=== PATIENT | male | born 1950 | race Caucasian/White ===

== ENCOUNTER → 2023-10-18 06:12 | Day surgery (SDC) | payer MEDICARE, OTHER, SELFPAY | LOC: GI 06:12 | PROVIDERS: ATTENDING PHYSICIAN Internal Medicine | DX: Z12.11 Encounter for screening for malignant neoplasm of colon (principal); K64.8 Other hemorrhoids; K63.5 Polyp of colon; D12.5 Benign neoplasm of sigmoid colon; D12.8 Benign neoplasm of rectum | CPT/HCPCS: 45385; 45380; 88305 ==

== ENCOUNTER 2024-06-17 11:01 | Emergency (ER) | payer MEDICARE, OTHER, SELFPAY ==
[2024-06-17 11:05] VITALS: BP 181/114
--- NOTE | 2024-06-17 11:49 | ED.GENMED ---
History of Present Illness
General
Chief Complaint: Breathing Problem
Source: patient
Exam Limitations: none
Time Seen by Provider: 06/17/24 11:44
History of Present Illness
History of Present Illness:
See MDM
Past History
Past History
ED Past Medical History: None
ED Past Surgical History: Orthopedic
Social History
Tobacco: Non-smoker
Personal:
Living: with family
Employment: Retired
Phy Exam
Physical Exam
Physical Exam:
See MDM
Scores
Heart Failure Risk
Heart Failure Risk Score: Not Applicable
Course
Orders/Labs/Results
Orders:
Orders
06/17/24 11:44
Dexamethasone Sod Phosphate [Decadron] 10 mg IV NOW STA
Ipratropium/Albuterol Sulfate [Duoneb] 3 ml INH R NOW STA
06/17/24 11:48
Electrocardiogram (*1) Urgent
Reason for Study: Shortness of Breath
EKG- Treatment ONCE
06/17/24 11:49
CR Chest - 2 Views Urgent
Comment:
Reason For Exam: SOB, cough
06/17/24 12:13
Complete Blood Count/With Diff Urgent
Comprehensive Metabolic Panel Urgent
NT-proBNP Urgent
Troponin I Urgent
Abnormal Lab Results
06/17/24
12:13
Abs Immat Gran (auto) 0.1 H 10^3/uL
(0-0.05)
Absolute Monos (auto) 0.9 H 10^3/uL
(0.1-0.6)
Immature Gran % 0.7 H %
(0-0.5)
Lymphocytes % 20.0 L %
(20.5-51.1)
Monocytes % 11.1 H %
(1.7-9.3)
Eosinophils % 8.7 H %
(0-6)
BUN 23 H mg/dl
(9-20)
Creatinine 0.6 L mg/dL
(0.7-1.3)
Glucose 101 H mg/dl
(70-99)
06/17/24 12:13
06/17/24 12:13
Vital Signs
Initial and Last Documented VS:
Initial Vital Signs
Temp Pulse Resp BP Pulse Ox
98.1 F 76 20 181/114 94
06/17/24 11:05 06/17/24 11:05 06/17/24 11:05 06/17/24 11:05 06/17/24 11:05
Last Documented Vital Signs
Temp Pulse Resp BP Pulse Ox
98.1 F 80 18 178/80 97
06/17/24 11:05 06/17/24 12:38 06/17/24 12:38 06/17/24 12:38 06/17/24 12:38
MDM/Problems Addressed
Differential Diagnosis Includes:
HPI and MDM Narrative:
73-year-old male presenting for evaluation of shortness of breath and cough. Patient states this feels very similar to a couple weeks ago when he was diagnosed with pneumonia and placed on antibiotics and steroids. He was also given a prescription
of albuterol which has been helping.
Patient states he is worried that the pneumonia has returned.
On exam, patient has diffuse expiratory wheezing throughout. No leg edema. Heart regular in rhythm. Will give DuoNeb and start Decadron and treat as likely bronchitis. Will obtain x-ray to rule out pneumonia
Physical exam
General: Well appearing and non-toxic
HEENT: protecting airway
Neck: appears supple
CV: No evidence of cyanosis. Regular rate and rhythm
Resp: No accessory muscle use. Diffuse expiratory wheezing throughout
Abd: Non-distended
Extremities: No deformities. No distal leg edema or tenderness
Neuro: alert
Psych: Normal affect
Skin: Intact
Problems Addressed including Acute and Chronic Conditions affecting care:
1. Acute bronchitis
Acuity: acute
Prognosis: stable
Details: Will give DuoNeb and IV Decadron. Will obtain x-ray to rule out pneumonia. Will obtain troponin and BNP to rule out ACS
Updates
Chest x-ray clear. Troponin and BNP negative. Patient feeling much better after DuoNeb and feels comfortable going home. Will start longer steroid taper and will write for inhaled steroid as well
Differential Diagnosis (but not limited to): Bronchitis, pneumonia
Testing considered: D-dimer
Drug therapy (if applicable): OTC meds, please see d/c instruction regarding Rx drugs
Amount and/or Complexity of Data Reviewed
Clinical info obtained from: Patient
External data reviewed: N/A
Labs I independently reviewed (but not limited to): Troponin negative
Radiology: X-ray independently reviewed: Chest x-ray clear
Pulse Ox: not hypoxic
EKG independently reviewed: Sinus rhythm, normal axis, no STEMI
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
Critical Care: N/A
Risk of Complication:
Social Determinants of health: Good social support
Discussed with other providers: N/A
Escalation of Care includes Admit/Obs: After being observed in the Emergency Department, pt stable for discharge.
Occasional wrong word or 'sound a like' substitutions may have occurred due to the inherent limitations of voice recognition software. Read the chart carefully and recognize, using context, where substitutions have occurred.
*Critical Care Note
Total Time (30-74mins, 75-104mins- exclusive of procedures): Not Applicable
ED Attending Note
-
Portions of this chart may have been created with voice recognition software.� Occasional wrong word or��sound alike� substitutions may have occurred due to the inherent limitations of voice recognition software.
Discharge Plan
Departure
Patient Disposition: Home (Routine Discharge)
Date of Disposition: 06/17/24
Time of Disposition: 14:02
Patient with high blood pressure during this ER visit?: Yes
Discharge Problem:
Acute bronchitis
Instructions: Acute Bronchitis, Adult (DC), BLOOD PRESSURE
Prescriptions:
New
prednisone 10 mg tablet
See Rx Instructions .ROUTE .COMPLEX Qty: 45 0RF
Rx Instructions:
5 tabs day 1-3, 4 tabs day 4-6, 3 tabs day 7-9, 2 tabs day 10-12, 1 tab day 13-15
albuterol sulfate 90 mcg/actuation HFA aerosol inhaler
2 puff inhalation Q6H PRN (Reason: shortness of breath or wheezing) Qty: 8.5 0RF
fluticasone propion-salmeterol [Advair Diskus] 250-50 mcg/dose blister with device
1 inh inhalation BID Qty: 60 0RF
No Action
triamcinolone acetonide [Nasacort AQ] 55 mcg Aerosol,[place]
1 spray INTRANASAL DAILY PRN (Reason: allergy symptoms )
Multivitamin 50 Plus Tablet
1 tab PO DAILY
PreserVision AREDS-2 250-90-40-1 mg Capsule
1 cap PO DAILY
Referrals:
Steven Reilly DO [Family Provider] -
Activity Restrictions/Additional Instructions:
Please return for any worsening symptoms.
You may return at any time if you have further concerns.
Please follow up with your doctor at the first available appointment, preferably this week.
Thank you for choosing [facility].
Interventions
Interventions:
*General Assessment Last Done: 06/17/24 11:11
ED- Fall Risk Assessment Last Done: 06/17/24 11:11
ED- Cardiac Assessment Last Done: 06/17/24 11:11
ED- Pulmonary Assessment Last Done: 06/17/24 11:11
Discharge Date and Time
Print Language: [place]
[2024-06-17] MEDS: DUONEB 3 ML INH (12:14)
[2024-06-17] MEDS: DECADRON 10 MG IV (12:14)
[2024-06-17 12:38] VITALS: BP 178/80
[2024-06-17 12:47] LABS: % Basophils 0.9 % (0-2); % Eosinophils 8.7 % (0-6); % Immature Granulocytes 0.7 % (0-0.5); % Monocytes 11.1 % (1.7-9.3); % Neutrophils 58.6 % (42.2-75.2); Absolute Basophils 0.1 10^3/uL (0-0.2); Absolute Eosinophils 0.7 10^3/uL (0-0.7); Absolute Immature Granulocytes 0.1 10^3/uL (0-0.05); Absolute Lymphocytes 1.6 10^3/uL (1.2-3.4); Absolute Monocytes 0.9 10^3/uL (0.1-0.6); Absolute Neutrophils 4.8 10^3/uL (1.4-6.5); Hematocrit 46.1 % (39.0-52.0); Hemoglobin 15.5 g/dL (13.0-18.0); Mean Corp Hgb Conc. 33.6 g/dL (33.0-37.0); Mean Corpuscular Hgb 30.6 pg (27.0-31.0); Mean Corpuscular Volume 90.9 fL (80.0-94.0); Mean Platelet Volume 10.3 fL (7.4-10.4); Nucleated Red Blood Cells % 0 % (-); Platelet Count 180 10^3/uL (130-400); Red Blood Cell Count 5.07 10^6/uL (4.70-6.10); Red Cell Dist. Width 12.4 % (11.5-14.5); White Blood Cell Count 8.2 10^3/uL (4.8-10.8)
[2024-06-17 13:01] LABS: ALT (SGPT) 20 U/L (0-50); AST (SGOT) 25 U/L (17-59); Albumin 3.9 g/dl (3.5-5.0); Alkaline Phosphatase 67 U/L (38-126); Blood Urea Nitrogen 23 mg/dl (9-20); Calcium 8.7 mg/dl (8.4-10.2); Carbon Dioxide 26 mmol/L (22-30); Chloride 105 mmol/L (98-107); Glucose 101 mg/dl (70-99); Potassium 4.4 mmol/L (3.5-5.1); Sodium 140 mmol/L (135-145); Total Bilirubin 0.5 mg/dl (0.2-1.3); Total Protein 6.6 g/dl (6.3-8.2); eGFR > 60.00
[2024-06-17 13:11] LABS: NT-proBNP 71.6 pg/ml; Troponin I < 0.012 ng/ml
== END 2024-06-17 14:41 | disposition home or self-care (01) ==
LOC: EMR 11:01
PROVIDERS: EMERGENCY PHYSICIAN Student in an Organized Health Care Education/Training Program; FAMILY PHYSICIAN Family Medicine
DX: J20.9 Acute bronchitis, unspecified (principal)
CPT/HCPCS: 99283; 94640; 96374; 71046; 80053; 83880; 84484; 85025; 93005